=== PATIENT | female | born 1950 | race Caucasian/White ===

== ENCOUNTER → 2016-08-08 | Outpatient (CLI) | payer MEDICARE, OTHER ==
[~2016-08-08] MED LIST: ASA325 MG PO; FLEXERIL-DPS10 MG PO; HYDRODIURIL-DPS25 MG PO; PRAVACHOL40 MG PO; PROVENTIL HFA6.7 GM IH; ZESTRIL DPS20 MG PO; [UNRECOGNIZED DRUG - OTHER] PO
== END | disposition home or self-care (01) ==
LOC: RAD.S 11:11
DX: Z12.31 Encounter for screening mammogram for malignant neoplasm of breast (principal); R92.1 Mammographic calcification found on diagnostic imaging of breast